=== PATIENT | male | born 1950 | race Caucasian/White ===

== ENCOUNTER → 2018-07-17 | Outpatient (REF) | payer MEDICARE, OTHER ==
[2018-07-17 12:51] LABS: PLATELET COUNT, AUTOMATED 192 10^3/uL (150-450)
[2018-07-17 13:00] LABS: INR 0.99; PROTHROMBIN TIME 13.1 SECONDS (12.1-14.4)
[2018-07-17 13:01] LABS: PARTIAL THROMBOPLASTIN TIME 30.6 SECONDS (25.4-37.6)
== END ==
LOC: M LABDRAW1 12:01
DX: Z01.812 Encounter for preprocedural laboratory examination (principal); M47.817 Spondylosis without myelopathy or radiculopathy, lumbosacral region; M51.37 Other intervertebral disc degeneration, lumbosacral region
CPT/HCPCS: 85049

== ENCOUNTER → 2019-07-20 | Outpatient (REF) | payer MEDICARE, OTHER ==
[2019-07-20 19:12] LABS: PLATELET COUNT, AUTOMATED 227 10^3/uL (150-450)
[2019-07-20 19:28] LABS: INR 1.07; PROTHROMBIN TIME 13.6 SECONDS (11.8-14.0)
[2019-07-20 19:29] LABS: PARTIAL THROMBOPLASTIN TIME 30.8 SECONDS (25.0-38.4)
== END ==
LOC: M LABDRAW1 17:15
PROVIDERS: ATTEND Physician Assistant
DX: M47.817 Spondylosis without myelopathy or radiculopathy, lumbosacral region (principal)

== ENCOUNTER → 2020-04-21 | Outpatient (CLI) | payer MEDICARE, OTHER ==
[2020-04-21 17:33] LABS: PLATELET COUNT, AUTOMATED 192 10^3/uL (150-450)
[2020-04-21 17:37] LABS: INR 0.9; PROTHROMBIN TIME 12.4 SECONDS (11.8-14.0)
[2020-04-21 17:38] LABS: PARTIAL THROMBOPLASTIN TIME 30.7 SECONDS (25.0-38.4)
[2020-04-21 18:10] LABS: COLLAGEN EPINEPHRINE > 300 SECONDS (74-162)
[2020-04-21 18:56] LABS: COLLAGEN ADP 131 SECONDS (56-103)
== END ==
LOC: M PLALAB 14:37
PROVIDERS: ATTEND Physician Assistant
DX: M47.817 Spondylosis without myelopathy or radiculopathy, lumbosacral region (principal)

== ENCOUNTER → 2020-05-25 | Outpatient (CLI) | payer MEDICARE, BC, OTHER | LOC: M LABSMTC 10:16 | PROVIDERS: ATTEND Physical Medicine & Rehabilitation | DX: Z11.59 Encounter for screening for other viral diseases (principal) ==

== ENCOUNTER → 2020-07-22 | Outpatient (CLI) | payer MEDICARE, BC, OTHER ==
[~2020-07-22] MED LIST: ASPI81CH2 PO; D32000TA2 PO; DILT120C78 PO; LIPI20TA PO; LISI-542 PO; NEUR600T PO; OMEP-218 PO
== END ==
LOC: M LABSMTC 13:02
PROVIDERS: ATTEND Anesthesiology
DX: Z01.812 Encounter for preprocedural laboratory examination (principal); Z20.828 Contact with and (suspected) exposure to other viral communicable diseases

== ENCOUNTER 2020-07-27 07:30 | Inpatient (IN) | payer MEDICARE, BC, OTHER ==
[~2020-07-27] VITALS: Ht 182.9 cm; Wt 101.2 kg
[2020-07-27] VITALS (8 sets, daily range): BP systolic 141–179; BP diastolic 75–98; O2SAT 94
[~2020-07-27 07:30] MED LIST changes: +LR 1,000 ML IV SCH; +PERCOCET 5MG/325MG TAB PO ONE; +ceFAZolin SOD 2 GM in IV 1 EA IV ONE
[2020-07-27] MEDS ORDERED: GABAPENTIN 300 MG CAP PO ONE (07:45)
[2020-07-27] MEDS ORDERED: METOCLOPRAMIDE INJ 10MG/2ML VIAL (J2765 PER 1) As Ordered ONE (07:45)
[2020-07-27] MEDS ORDERED: ONDANSETRON 4MG/2ML VIAL As Ordered ONE ×2 (07:45→13:19)
[2020-07-27] MEDS ORDERED: propofoL 200 MG/20 ML VIAL As Ordered ONE (07:45)
[2020-07-27] MEDS ORDERED: fentaNYL 100 MCG/2 ML INJECTION (J3010) As Ordered ONE (07:45)
[2020-07-27] MEDS ORDERED: ROCURONIUM BROMIDE 50 MG/5 ML VIAL As Ordered ONE ×2 (07:45→13:19)
[2020-07-27] MEDS ORDERED: LIDOCAINE 2% 100MG/5ML SDV (FOR ANES.) As Ordered ONE (07:45)
[2020-07-27] MEDS ORDERED: MIDAZOLAM INJ 2MG/2ML VIAL (J2250 PER 1MG) As Ordered ONE (07:46)
[2020-07-27] MEDS ORDERED: THROMBIN SOLN 20,000 UNITS KIT As Ordered ONE (08:04)
[2020-07-27] MEDS ORDERED: BUPIVACAINE HCL 0.5% 10ML VIAL As Ordered ONE ×2 (08:05→09:03)
[2020-07-27] MEDS ORDERED: EPINEPHrine INJ 1 MG/ML 1ML AMP As Ordered ONE (08:05)
[2020-07-27] MEDS ORDERED: VANCOMYCIN 500MG/10ML VIAL As Ordered ONE (08:05)
[2020-07-27] MEDS ORDERED: TRANEXAMIC ACID 100 MG/ML 10ML VIAL As Ordered ONE (08:05)
[2020-07-27] MEDS ORDERED: BUPIVACAINE LIPOSOME/PF 1.3% 20ML VIAL (13.3MG/ML)(EXPAREL)(C9290 PER1MG) As Ordered ONE (08:05)
[2020-07-27] MEDS ORDERED: BACITRACIN PWD 50,000 UNITS VIAL As Ordered ONE (08:06)
[2020-07-27] MEDS ORDERED: LIDOCAINE W/EPINEPHRINE 1% 20ML VIAL As Ordered ONE (09:01)
[2020-07-27] MEDS ORDERED: BUPIVACAINE HCL 0.25% 10ML VIAL As Ordered ONE (09:01)
[2020-07-27] MEDS ORDERED: HYDROmorphone HCL 2 MG/ML 1ML VIAL (J1170) As Ordered ONE (10:01)
[2020-07-27] MEDS ORDERED: ceFAZolin 1GM VIAL (J0690 PER 500MG) As Ordered ONE (12:30)
[2020-07-27] MEDS ORDERED: dexameTHASONE 4 MG/ML 1ML VIAL (J1100 PER 1MG) As Ordered ONE (13:20)
[2020-07-27] MEDS ORDERED: ACETAMINOPHEN 1000MG 100ML IV BTL (OFIRMEV) (J0131 PER 10MG) As Ordered ONE (13:20)
[2020-07-27] MEDS ORDERED: BACITRACIN OINTMENT 30GM TUBE As Ordered ONE (14:28)
--- NOTE | 2020-07-27 14:31 | REP ---
INDICATION: RIGHT, L3, L4, L5 UNI LAMINECTOMY. COMPARISON: None. TECHNIQUE: 1 minutes 25 seconds of fluoroscopy time is reported. FINDINGS: A sequence of 2 fluoroscopically obtained last image hold procedural spot radiographs of the lumbar spine document right-sided L3 through L5 fusion procedure. A cross-table lateral intraoperative portable radiograph time stamp 9:53 a.m. demonstrates an intraoperative probe projecting over the spinal canal at the L4 pedicle level.. IMPRESSION: Procedural imaging. <Electronically signed by Elier Pang > 07/27/20 [id number]
[2020-07-27] MEDS ORDERED: oxyCODONE 5MG TAB PO PRN (15:00)
[2020-07-27] MEDS ORDERED: ONDANSETRON 4MG/2ML VIAL IV PRN ×2 (15:00→15:15)
[2020-07-27] MEDS ORDERED: BACITRACIN OINTMENT 30GM TUBE TOP ONE (15:00)
[2020-07-27] MEDS ORDERED: fentaNYL 100 MCG/2 ML INJECTION (J3010) IV PRN (15:00)
[2020-07-27] MEDS ORDERED: LR 1,000 ML IV SCH (15:00)
[2020-07-27] MEDS ORDERED: PERCOCET 5MG/325MG TAB PO PRN (15:15)
[2020-07-27] MEDS ORDERED: D5W/LR 1,000 ML IV SCH (15:15)
[2020-07-27] MEDS ORDERED: ACETAMINOPHEN TAB 650MG DOSE (2X325MG) PO PRN (15:15)
[2020-07-27] MEDS ORDERED: HYDROMORPHONE HCL 0.5 MG/ 0.5 ML SYRINGE (J1170 PER 1) IV PRN ×2 (15:45)
--- NOTE | 2020-07-27 16:28 | HPEPDOC ---
General Date of Admission Jul 27, 2020 at 07:34 Date of Service: Jul 27, 2020 Attending Physician: RASHEEDA SANTOS MD Chief Complaint The patient is a 70-year-old male admitted with a reason for visit of Right L3/4, L4/5 Lumbar Stenosis. Source: Patient Exam Limitations: No limitations Timing/Duration: Getting worse Associated Symptoms: Other (back pain) History of Present Illness 70 yo M with a history of HTN, HLD, GERD, osteoarthritis with lumbar stenosis and chronic back pain who is being admitted post elective right L3 through L5 unilateral laminectomy, posterior spinal fusion, unilateral pedicle screws and R iliac crest bone graft, with Dr. Lucero. Pre-surgery he otherwise felt well with no acute complaints besides his chronic back pain, without fever, chills, recent illness. Home Medications Scheduled Aspirin (Aspirin) 81 Mg Tab.chew, 81 MG PO DAILY, (Reported) Atorvastatin Calcium (Lipitor) 20 Mg Tablet, 20 MG PO DAILY, (Reported) Cholecalciferol (Vitamin D3) (Vitamin D3) 50 Mcg Tablet, 50 MCG PO DAILY, (Reported) Diltiazem HCl (Diltiazem 24Hr ER) 120 Mg Cap.er.24h, 240 MG PO DAILY, (Reported) Gabapentin (Neurontin) 600 Mg Tablet, 600 MG PO TID, (Reported) Lisinopril (Lisinopril) 5 Mg Tablet, 5 MG PO DAILY, (Reported) Omeprazole (Omeprazole) 20 Mg Capsule.dr, 20 MG PO DAILY, (Reported) Allergies Coded Allergies: No Known Allergies (Unverified , 07/27/20) Past Medical History Medical History HTN, HLD, GERD, osteoarthritis with lumbar stenosis and chronic back pain, obesity Surgical History Prostate biopsy x 2 Colonoscopy hernia repair x 3 Family History Significant Family History: Hypertension Social History * Smoker: Denies Alcohol: occationally Drugs: denies Recent Travel/Sick Contacts: Denies: Recent travel, Recent sick contacts Psychosocial History: No pertinent psych hx A-FIB/CHADSVASC A-FIB History Current/History of A-Fib/PAF?: No Current PO Anticoag Therapy: No Age/Risk Factor Scoring CHADSVASC: CHADSVASC Response (Comments) Value Age Risk Factor Age 65-74 years old 1 Gender Risk Factor Male 0 Hx of CHF No 0 Hx of HTN Yes 1 Hx of Stroke/TIA/or VTE No 0 Hx of Diabetes No 0 Hx of Vascular Disease No 0 Total 2 Treatment Treatment ordered: NONE Reason Anticoagulant not given: Not indicated/[id number] Review of Systems Constitutional: Denies: Chills, Fever, Malaise, Night Sweats, Weakness, Fatigue, Weight Loss, Lethargy, Other Eyes: Denies: Pain, Vision change ENT: Denies: Head Aches, Ear Pain, Dysphagia Skin: Denies: Rash, Lesions, Breakdown Pulmonary: Denies: Dyspnea, Cough Cardiovascular: Denies: Chest Pain, Palpitations, Orthopnea, Paroxysmal Noc. Dyspnea, Lt Headedness Gastrointestinal: Denies: Nausea, Vomiting, Abdominal Pain, Diarrhea Genitourinary: Denies: Dysuria, Frequency, Incontinence, Retention Hematologic: Denies: Bruising, Bleeding Excessively Endocrine: Denies: Polydipsia, Polyphagia, Polyuria, Heat Intolerance, Cold Intolerance, Other Endocrine Sx Musculoskeletal: Reports: Back Pain (chronic. Currently postop is numb) Neurological: Denies: Weakness, Numbness, Change in speech, Confusion Psych: Reports: Mood Normal; Denies: Depression, Memory Issues Physical Examination General Exam: Positive: Alert, No Acute Distress, Other (obese) Eye Exam: Positive: PERRLA, Conjunctiva & lids normal, EOMI; Negative: Sclera icteric ENT Exam: Positive: Atraumatic, Mucous membr. moist/pink, Pharynx Normal Neck Exam: Positive: Supple; Negative: JVD, thyromegaly Chest Exam: Positive: Clear to auscultation, Normal air movement, Other (on 2L NC) Heart Exam: Positive: Rate Normal, Regular Rhythm, Normal S1, Normal S2, Murmurs (systolic murmur at RUSB, 2/6, pansystolic); Negative: Rubs Abdomen Exam: Positive: Normal bowel sounds, Soft, Other (obese); Negative: Tenderness, Hepatospenomegaly, Mass Extremity Exam: Positive: Normal pulses; Negative: Clubbing, Cyanosis, Edema Skin Exam: Positive: Nl turgor and temperature; Negative: Breakdown, Lesion Neuro Exam: Positive: Normal Speech, Cranial Nerves 3-12 NL Psych Exam: Positive: Mental status NL, Mood NL, Oriented x 3 Vital Signs Vital Signs Date Time Temp Pulse Resp B/P (MAP) Pulse Ox O2 Delivery O2 Flow Rate FiO2 07/27/20 15:45 96.0 78 16 179/80 (113) 94 Nasal Cannula 4.0 Assessment/Plan 70 yo M with a history of osteoarthritis and lumbar stenosis with chronic back pain who was admitted post right lumbar L3, L4 and L5 laminectomy by Dr. Lucero. s/p Laminectomy: -Pain management per primary surgery team -DVT ppx per surgical team -ondansetron PRN for postop nausea -PT/OT per surgery recs -periop ancef Hypoxemic respiratory failure: i/s/o being immediately postop -will offer incentive spirometry -CTAB on examination -AM CBC HTN: -will plan to resume dilt and lisinopril tomorrow as hemodynamics permit, after noting AM labs HLD: -restart lipitor tomorrow AM GERD: -continue home omeprazole Dispo: med/surg inpatient Plan / VTE VTE Prophylaxis Ordered?: Yes RASHEEDA SANTOS MD Jul 27, 2020 16:28
[2020-07-27] MEDS: GABAPENTIN 300 MG CAP PO SCH ×2 (18:02→20:43)
[2020-07-27] MEDS: PERCOCET 5MG/325MG TAB PO PRN ×2 (18:14→23:21)
[2020-07-27] MEDS: ceFAZolin SOD 2 GM in IV 1 EA IV SCH (20:44)
[2020-07-28 02:00] VITALS: BP 142/86
[2020-07-28] MEDS: ceFAZolin SOD 2 GM in IV 1 EA IV SCH (04:55)
[2020-07-28] MEDS: PERCOCET 5MG/325MG TAB PO PRN ×5 (04:55→22:43)
[2020-07-28 06:00] VITALS: BP 147/85
[2020-07-28] MEDS ORDERED: PERC5TAB12 PO (06:10)
[2020-07-28 07:28] LABS: HEMATOCRIT 41.4 % (42.0-52.0); HEMOGLOBIN 13.8 g/dl (13.5-17.5); MEAN CORPUSCULAR HGB CONC 33.3 g/dl (32.0-36.5); PLATELET COUNT, AUTOMATED 224 10^3/uL (150-450); RED BLOOD COUNT 4.45 10^6/uL (4.30-6.10); WHITE BLOOD COUNT 16.3 10^3/uL (4.0-10.0)
[2020-07-28 07:47] LABS: BLOOD UREA NITROGEN 22 MG/DL (7-18); CALCIUM LEVEL 8.6 MG/DL (8.8-10.2); CARBON DIOXIDE LEVEL 28 MEQ/L (21-32); CHLORIDE LEVEL 103 MEQ/L (98-107); CREATININE FOR GFR 1.25 MG/DL (0.70-1.30); GLOMERULAR FILTRATION RATE > 60.0 (>42); GLUCOSE, FASTING 176 MG/DL (70-100); POTASSIUM SERUM 4.5 MEQ/L (3.5-5.1); SODIUM LEVEL 138 MEQ/L (136-145)
[2020-07-28] MEDS: GABAPENTIN 300 MG CAP PO SCH ×3 (08:58→20:27)
[2020-07-28] MEDS: OMEPRAZOLE 20 MG CAP PO SCH (08:59)
[2020-07-28] MEDS: lisinopriL 5 MG TAB PO SCH (09:00)
[2020-07-28] MEDS ORDERED: ASPIRIN 81 MG CHEW TABLET PO SCH (09:00)
[2020-07-28] MEDS: ATORVASTATIN 20 MG TAB PO SCH (09:00)
[2020-07-28] MEDS: MIRALAX *UNIT DOSE* 17GM PACKET PO SCH (09:00)
[2020-07-28 10:00] VITALS: BP 145/85
--- NOTE | 2020-07-28 10:14 | RO ---
OPERATIVE NOTE DATE OF OPERATION: 07/27/2020 PREOPERATIVE DIAGNOSIS: Lumbar spinal stenosis affecting the right more than the left lower extremity with severe facet arthropathy. POSTOPERATIVE DIAGNOSIS: Lumbar spinal stenosis affecting the right more than the left lower extremity with severe facet arthropathy. PROCEDURE PERFORMED: Right unilateral laminectomy for decompression of the thecal sac centrally and traversing nerve roots L3, right unilateral laminectomy additional level L4, right unilateral laminectomy additional level L5, posterior spinal fusion intertransverse L3-4 and L4-5, right harvest and placement of right iliac crest bone graft, instrumentation segmental L3, 4, 5. SURGEON: Douglas Lucero MD SKIVER HEEL TAP: TANNER Hubbard. ANESTHESIA: Generally. ESTIMATED BLOOD LOSS: 800 mL replaced with Crystalloid. COMPLICATIONS: None. DRAIN: 7 flat. INDICATIONS: Intractable discomfort down the right more than the left lower extremity, some back pain. MRI evidence and plain film evidence of severe facet arthropathy, especially at 3-4, transitional lumbosacral anatomy. Consent reviewed in detail including a jaqueline discussion of the pathology involved, the procedures proposed, alternatives including doing nothing, risks including but not limited to pain, failure, infection, nerve injury, need for more surgery, bleeding, blood clots, incomplete relief and other issues. The patient agrees to proceed with the surgery. OPERATIVE COURSE: Identified in the holding area, brought to the operating room. Anesthesia was administered. Position on the Salvatore frame for exposure of the lumbar spine. Once the roll over press operator was comfortable with the patient's positioning he was then sterilely prepped and draped in the usual fashion. Initially I utilized Loupe magnification. I stood on the patient's right, Mr. Poole on the left. Time out was accomplished. The line of the incision was about 8 cm long infiltrated with 0.25% Marcaine with Epinephrine, made with a 10 blade knife just to the right of midline, developed down through skin, subcuticular tissues to the posterior lumbar fascia. The patient's depth of wound was larger than anticipated for his stated BMI. Next, posterior lumbar fascia was divided and reflected off the right spinous processes and down to the lamina of 3, 4 and 5. The pedicle at [address] a probe in the pedicle. We obtained a cross table lateral x-ray to verify level. We then continued the section out over the transverse processes of 3, 4, and 5 on the patient's right side and placed a shadow line retractor. We utilized a pair of 75 mm blades to that end. Once we had adequate exposure we dbrided the hypertrophied facets of osteophytes and posterior lamina. This bone retained for a bone graft. Next once this was accomplished we exchanged my Loupe magnification for the operating microscope. Use of the operating microscope allowed safe use of the high speed bur. High speed bur was utilized to implement a right unilateral laminectomy undercutting the spinous processes of 4, 3, and 5 as well as removing the lamina up through the bare area 3 down through the bare area of 5 and removing the medial 40% of the 3-4 facet complex. Next, curettes were utilized to elevate ligamentum flavum which was removed using pituitaries as well as #2 and 3 Kerrisons. Next significant lateral recess stenosis was appreciated especially at 3-4 on the right side. This was elevated with curettes and removed with Kerrisons. Next over the horizon of the dura, I decompressed the contralateral side using curettes as well as #2 Kerrisons, especially at 3-4 where there was quite significant stenosis there. There was less appreciable hypertrophy at 4-5 but this was also accomplished at that level. Sharp Reese was run along the lateral recess bilaterally and appreciated to be significantly decompressed. Next, once this was accomplished, the operating microscope was removed from the field. After inspecting we appreciated no CSF leaks. We irrigated including irrigation with TXA. We also used bipolar cautery for hemostasis. The patient during the course of the surgery had diffuse nonfocal bleeding. Next, I exposed the right iliac crest through a separate fascial incision and removed morselized iliac crest bone graft using Forman curettes with the assistance of Mr. Poole who retracted and helped with exposure. We irrigated that part of the wound, filled the iliac crest site with TXA solution and packed with dry Gelfoam and closed the fascial incision. Next, once this was accomplished, we brought the C-arm in. We utilized C-arm fluoroscopy to localize pedicles and placed pedicle screws on the right at 3, 4, and 5. This was accomplished by cannulating the pedicle using the pedicle finder followed by use of the ball tip guide to verify pedicle track as well as fluoroscopy in AP and lateral planes followed by tapping with the 6.5 followed by placement of 7.5 screws. The pedicles were accessed in a similar fashion at L3, 4, and 5 with 7.5 screws at the appropriate length 55 at 3, 50 at 4, 45 at 5. Next, I placed the iliac crest morselized bone graft over the decorticated transverse processes of 3, 4 and 5. We had harvested bur millings using the [employer] trap. This was mixed with 15 mL of crushed cancellous bone graft and also placed over the transverse processes at 3, 4 and 5. Once this was accomplished a 60 mm 0.25 inch connecting lashanda was placed within the screw heads, secured using end caps and secured using the torque/counter torque device locking it in place. I did distract about 4 mm at the L4-5 level. Next once this was accomplished we again irrigated, inspected for any active bleeding and utilized the rest of the TXA which was allowed to stand for more than a minute. Next we placed a 7 flat drain exiting superolaterally to the right side through a separate incision and then I closed the fascial incision with interrupted stitch, and the deep dermis was closed with interrupted stitch. Prineo dressing and drain dressing was applied. The patient was log-rolled to a hospital bed, extubated, moved to the recovery room in good condition. For further details please refer to medical record. Mr. Anguianoigna was present and participated in the entirety of the case in the capacity of assistant project engineer. edited: 08/01/2020 0759 camacho SCHAFFER
--- NOTE | 2020-07-28 12:59 | IPNPDOC ---
Text Note Date of Service The patient was seen on 07/28/20. NOTE SUBJECTIVE: -No issues overnight General: Alert, No Acute Distress, obese Eye: PERRLA, Conjunctiva & lids normal, EOMI, anicteric ENT: Atraumatic, Mucous membr. moist/pink, Pharynx Normal Neck: Supple, no JVD or noted thyromegaly Chest: Clear to auscultation, Normal air movement, on room air Heart: Rate Normal, Regular Rhythm, Normal S1, Normal S2, systolic murmur at RUSB, 2/6, pansystolic Abdomen: Normal bowel sounds, Soft, obese, NTND Extremities: Normal pulses, no edema Neuro: Normal Speech, Cranial Nerves 3-12 NL Psych: Mental status NL, Oriented x 3 Drains: VINOD drain with bloody drainage ~60cc Labs: WBC 16.3 Hgb 13.8 platelets 224 Na 138 K 4.5 Cr 1.25 Assessment: 70 yo M with a history of osteoarthritis and lumbar stenosis with chronic back pain who was admitted post right lumbar L3, L4 and L5 laminectomy by Dr. Lucero. s/p Laminectomy: -Pain management per primary surgery team -DVT ppx per surgical team -ondansetron PRN for postop nausea -PT/OT per surgery recs -Received periop ancef Transient postop hypoxia: resolved -incentive spirometry -CTAB on examination Leukocytosis: Likely reactive post op -Will monitor for now HDS, afebrile, breathing comfortably on room air HTN: -c/w dilt and lisinopril HLD: -lipitor GERD: -continue home omeprazole Dispo: med/surg inpatient. VS,Marbinbone, I+O VS, Fishbone, I+O Laboratory Tests 07/28/20 07:00 Vital Signs Date Time Temp Pulse Resp B/P (MAP) Pulse Ox O2 Delivery O2 Flow Rate FiO2 07/28/20 09:00 147/85 07/28/20 08:59 92 07/28/20 08:59 18 Room Air 07/28/20 06:00 98.5 94 07/27/20 21:00 0.0 I&O- Last 24 Hours up to 6 AM 07/28/20 06:00 Intake Total 2950 ml Output Total 2865 ml Balance 85 ml RASHEEDA SANTOS MD Jul 28, 2020 10:25
[2020-07-28 18:00] VITALS: BP 146/81
[2020-07-28 20:30] VITALS: BP 142/81
[2020-07-29] MEDS: PERCOCET 5MG/325MG TAB PO PRN ×2 (03:53→08:41)
[2020-07-29 06:28] VITALS: BP 125/74
[2020-07-29 07:01] LABS: HEMATOCRIT 36.4 % (42.0-52.0); HEMOGLOBIN 12.2 g/dl (13.5-17.5); MEAN CORPUSCULAR HEMOGLOBIN 31.6 pg (27.0-33.0); MEAN CORPUSCULAR HGB CONC 33.5 g/dl (32.0-36.5); MEAN CORPUSCULAR VOLUME 94.3 fl (80.0-96.0); PLATELET COUNT, AUTOMATED 174 10^3/uL (150-450); RED BLOOD COUNT 3.86 10^6/uL (4.30-6.10); WHITE BLOOD COUNT 9.9 10^3/uL (4.0-10.0)
[2020-07-29 07:27] LABS: BLOOD UREA NITROGEN 20 MG/DL (7-18); CALCIUM LEVEL 8.4 MG/DL (8.8-10.2); CARBON DIOXIDE LEVEL 31 MEQ/L (21-32); CHLORIDE LEVEL 105 MEQ/L (98-107); GLOMERULAR FILTRATION RATE > 60.0 (>42); GLUCOSE, FASTING 137 MG/DL (70-100); POTASSIUM SERUM 4.5 MEQ/L (3.5-5.1); SODIUM LEVEL 139 MEQ/L (136-145)
[2020-07-29 08:42] VITALS: BP 125/74
[2020-07-29] MEDS: OMEPRAZOLE 20 MG CAP PO SCH (08:42)
[2020-07-29] MEDS: lisinopriL 5 MG TAB PO SCH (08:42)
[2020-07-29] MEDS: ATORVASTATIN 20 MG TAB PO SCH (08:43)
[2020-07-29] MEDS: GABAPENTIN 300 MG CAP PO SCH (08:44)
[2020-07-29] MEDS: MIRALAX *UNIT DOSE* 17GM PACKET PO SCH (08:45)
[2020-07-29] MEDS ORDERED: ONDANSETRON 4 MG ORAL DISINTEGRATING TAB PO PRN ×3 (10:15→10:30)
--- NOTE | 2020-07-29 13:41 | IPNPDOC ---
Text Note Date of Service The patient was seen on 07/29/20. NOTE SUBJECTIVE: -No issues overnight General: Alert, No Acute Distress, obese Eye: PERRLA, Conjunctiva & lids normal, EOMI, anicteric ENT: Atraumatic, Mucous membr. moist/pink, Pharynx Normal Neck: Supple, no JVD or noted thyromegaly Chest: Clear to auscultation, Normal air movement, on room air Heart: Rate Normal, Regular Rhythm, Normal S1, Normal S2, systolic murmur at RUSB, 2/6, pansystolic Abdomen: Normal bowel sounds, Soft, obese, NTND Extremities: Normal pulses, no edema Neuro: Normal Speech, Cranial Nerves 3-12 NL, moving all extremities Psych: Mental status NL, Oriented x 3 Drains: VINOD drain with bloody drainage ~60cc Labs: WBC 9.9 Hgb 12.2 platelets 174 Na 139 K 4.5 Cr 1.00 Assessment: 70 yo M with a history of osteoarthritis and lumbar stenosis with chronic back pain who was admitted post right lumbar L3, L4 and L5 laminectomy by Dr. Lucero. s/p Laminectomy: -Pain management per primary surgery team -DVT ppx per surgical team -ondansetron PRN for postop nausea -PT/OT per surgery recs -Received periop ancef Transient postop hypoxia: resolved -incentive spirometry -CTAB on examination Leukocytosis: Likely reactive post op. Resolved. -monitor for now HDS, afebrile, breathing comfortably on room air HTN: -c/w dilt and lisinopril HLD: -lipitor GERD: -continue home omeprazole Dispo: med/surg inpatient. Per surgical team. Medically stable for discharge if recommended by surgery. VS,Fishbone, I+O VS, Fishbone, I+O Laboratory Tests 07/29/20 06:43 Vital Signs Date Time Temp Pulse Resp B/P (MAP) Pulse Ox O2 Delivery O2 Flow Rate FiO2 07/29/20 08:42 125/74 07/29/20 08:41 16 07/29/20 06:28 97.9 62 94 Room Air 07/27/20 21:00 0.0 I&O- Last 24 Hours up to 6 AM 07/29/20 06:00 Intake Total 2335 ml Output Total 450 ml Balance 1885 ml RASHEEDA SANTOS MD Jul 29, 2020 09:02
--- NOTE | 2020-08-01 10:06 | DSES ---
DISCHARGE SUMMARY DATE OF ADMISSION: 07/27/2020 DATE OF DISCHARGE: 07/29/2020 ADMITTING DIAGNOSES: 1. Lumbar spinal stenosis. 2. Right greater than left lower extremity radiculopathy. OTHER DIAGNOSES: Include: 1. Hypertension. 2. Elevated lipids. 3. Gastric reflux disease. 4. Obesity. 5. Chronic back pain. DISCHARGE DIAGNOSES: 1. Lumbar spinal stenosis. 2. ____ greater than ____ lower extremity radiculopathy status post right unilateral laminectomy and decompression L4, L3 and L5, posterior spinal intertransverse fusion L3-4 and L4-5 with the use of iliac crest bone graft and segmented instrumentation unilaterally at L3, 4 and 5. OPERATION PERFORMED: Right unilateral laminectomy at L3, 4 and 5 to the right side as well as posterior spinal intertransverse fusion L3-4 and L4-5 with use of right iliac crest bone graft and instrumentation segmentally at L3, 4 and 5 unilaterally. HOSPITAL COURSE: The patient was admitted on the day of surgery and underwent the above listed surgery. It was well tolerated by the patient without incident. He did well in the post-operative period and has continued to improve and his symptoms improve. On the day of discharge he was weightbearing as tolerated on his lower extremities with the use of his back brace. He will use oral pain medications for pain control. He will resume his pre-operative medications and diet. He was given instructions to include, but not limited to wound monitoring and activity limitations. He will then follow up in our office in 7-10 days for a surgical follow up. Please refer to the medical record for further details. Douglas Lucero MD
== END 2020-07-29 11:22 | disposition home or self-care (01) | DRG 460 ==
LOC: M OR 07:34 → M MS5PR 15:35
PROVIDERS: ADMIT Orthopaedic Surgery; ATTEND Orthopaedic Surgery
PROC: 0SG10AJ Fusion of 2 or more Lumbar Vertebral Joints with Interbody Fusion Device, Posterior Approach, Anterior Column, Open Approach (ICD-10-PCS; principal; 2020-07-27 09:15)
DX: M48.061 Spinal stenosis, lumbar region without neurogenic claudication (principal); R09.02 Hypoxemia; I10 Essential (primary) hypertension; K21.9 Gastro-esophageal reflux disease without esophagitis; E66.9 Obesity, unspecified; Z79.82 Long term (current) use of aspirin; Z79.899 Other long term (current) drug therapy